=== PATIENT | male | born 2000 | race Caucasian/White ===

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

== ENCOUNTER 2022-11-23 00:01 | Emergency (ER) | payer OTHER, SELFPAY ==
[2022-11-23 00:02] VITALS: BP 135/77; PULSE 78; RESP 16; TEMP 36.8; O2SAT 98; BMI 22.6
[2022-11-23] MEDS: Lidocaine 1% (20 ml mdv) 20 ML Vial INFILT (00:34)
--- NOTE | 2022-11-23 01:38 | EDS_ITS ---
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 He sustained blunt head trauma. There was no loss of conscious. He was not dazed. He is not amnestic. Tetanus is up-to-date. He denies visual or ocular symptoms. He denies ringing's ears or decreased hearing. He denies neck pain. Denies paresthesia, anesthesia medics. Tetanus Immunization: <5 years Prior similar symptoms: No Recent Illness/Hospitalization: No PFSH PFS Medical History SVT (supraventricular tachycardia) Allergy/AdvReac Type Severity Reaction Status Date / Time Penicillins Allergy Hives Verified 11/23/22 00:04 Surgical History History of radiofrequency ablation procedure for cardiac arrhythmia Social History (Updated 11/23/22 @ 01:[address] David Wall MD) household members: family Smoking Status: Never smoker ROS ROS ED Constitutional Constitutional ED: Denies chills, fever(s), subjective, sweats or weight loss Eyes Eyes: Reports other Details: He denies double vision. ; Denies blurry vision or change in vision ENT ENT ED: Reports other Details: Denies epistaxis. He denies ringing's ears or decreased hearing. ; Denies ear pain, rhinorrhea or sore throat Gastrointestinal Gastrointestinal: Reports nausea and vomiting Integumentary Reports other Details: Laceration involving the face Neurologic Neurologic: Denies headache(s), paresthesias or weakness Hematologic/Lymphatic Hematologic/Lymphatic: Denies easy bleeding or easy bruising EXAM Physical Exam Const Vital Signs: 11/23/22 00:02 Temperature 98.3 F Temperature Source Oral Pulse Rate 78 Respiratory Rate 16 Blood Pressure 135/77 H Blood Pressure Mean 96 Pulse Ox 98 Oxygen Delivery Method Room Air Positive well nourished and well developed General Appearance ED: well developed and NAD HEENT HEENT Narrative: 3.0 cm laceration involving the right eyebrow. There is no skin step-off. There is no depression. trauma Nose: Negative for septum abnormal Eyes PERRL and EOMs intact bilaterally General Eye ED: Yes other Other Details: No subconjunctival hemorrhage. There is no evidence of entrapment. Neck full ROM General: Negative for tenderness Resp normal respiratory effort Cardio regular rhythm and S1 normal heart sound Extremity normal to inspection and full ROM Neuro oriented x3, CN's II-XII intact bilaterally and moves all extremities Felisa Coma Scale: document GCS findings Spontaneous Obeys Commands Oriented 15 Sensorium / Orientation: alert Plantar Reflex: Downgoing: bilateral Psych mental status grossly normal and thought process normal Skin Skin Narrative: Facial laceration PROC Procedures Other Procedures Procedure(s): Patient was prepped draped sterile manner. The laceration was anesthetized with 1% lidocaine by local infiltration. The wound was cleansed with surgical lines and saline. 6-0 Ethilon was used to close the wound. A total of 9 stitches was placed. Patient tolerated procedure well. MDM MDM MDM Narrative Medical decision making narrative: Laceration which required repair. Please see procedure note. Per the [place] CT head rule imaging of the head is not indicated. Since he has no neck pain imaging of the neck is not required. Discharge Plan Triage Chief Complaint: Laceration ED Provider: David Wall Dx/Rx/DC Orders Clinical Impression: Laceration of face Instructions: ED Laceration: All Closures, ED Laceration Minimize Scars Primary Care Provider: Noris Joyce Referrals: [facility] [Group of Physicians] - 5 Days for suture removal Noris Joyce PA [Primary Care Provider] - Activity Restrictions/Additional Instructions: Keep wound clean and dry. Apply bacitracin ointment 3 times a day Disposition Disposition: Home, Self Care
== END 2022-11-23 02:35 | disposition home or self-care (01) ==
PROVIDERS: Emergency Provider Emergency Medicine; PCP Physician Assistant; Visit Provider Emergency Medicine
DX: S01.81XA Laceration without foreign body of other part of head, initial encounter (principal); X58.XXXA Exposure to other specified factors, initial encounter; Y93.66 Activity, soccer; Y92.214 College as the place of occurrence of the external cause
CPT/HCPCS: 12013; 99283